=== PATIENT | female | born 1970 | race Caucasian/White ===

== ENCOUNTER 2021-02-11 12:51 | Emergency (ER) | payer OTHER ==
[2021-02-11 13:10] VITALS: BP 151/80; PULSE 100; TEMP 98; BMI 29.2
== END 2021-02-11 14:52 | disposition home or self-care (01) ==
LOC: JER 12:51
DX: J06.9 Acute upper respiratory infection, unspecified (principal)
CPT/HCPCS: 71045-TC-FY; 87070; 87804; 99284-25